=== PATIENT | male | born 1940 | race Hispanic/Latino ===

== ENCOUNTER 2018-02-20 07:26 | Day surgery (SDC) | payer MEDICARE, OTHER ==
[2018-02-20] MEDS ORDERED: NACL 0.9% 1000 ML 1,000 ML IV SCH (08:00)
[2018-02-20] MEDS ORDERED: PROVENTIL IH NR (08:00)
--- NOTE | 2018-02-20 08:03 | Anesthesia Day of Surgery ---
Anesthesia Day of Surgery - Day of Surgery Patient Examined: Yes Patient H&P Reviewed: Yes Patient is NPO: Yes Beta Blockers: No Cardiac Clearance: No Pulmonary Clearance: No
--- NOTE | 2018-02-20 08:04 | Anesthesia Consultation ---
Anesthesia Consult and Med Hx - Airway Anesthetic Teeth Evaluation: Good ROM Head & Neck: Adequate Mental/Hyoid Distance: Adequate Mallampati Class: Class III Intubation Access Assessment: Probably Good - Pulmonary Exam CTA: Yes - Cardiac Exam Cardiac Exam: No Murmur - Pre-Operative Health Status ASA Pre-Surgery Classification: ASA3 Proposed Anesthetic Plan: MAC - Pulmonary Hx Smoking: No Hx Asthma: No Hx Respiratory Symptoms: No SOB: No COPD: No Home Oxygen Therapy: No Hx Pneumonia: Yes (HX) Hx Sleep Apnea: Yes (USE HOME O2 @ 2L/M AT NIGHT) - Cardiovascular System Hx Hypertension: No Hx Coronary Artery Disease: No Hx Heart Attack/AMI: No Hx Angina: No Hx Percutaneous Transluminal Coronary Angioplasty (PTCA): No Hx Cardia Arrhythmia: No Hx Pacemaker: No Hx Internal Defibrillator: No Hx Valvular Heart Disease: No Hx Heart Murmur: No Hx Peripheral Vascular Disease: No - Central Nervous System Hx Neuromuscular Disorder: No Hx Seizures: No CVA: No Hx Back Pain: No Hx Psychiatric Problems: No - Gastrointestinal Hx Ulcer: No Hx Gastroesophageal Reflux Disease: No - Endocrine Hx Renal Disease: No Hx End Stage Renal Disease: No Hx Cirrhosis: No Hx Liver Disease: No Hx Insulin Dependent Diabetes: No Hx Non-Insulin Dependent Diabetes: No Hx Thyroid Disease: No Hx Hypothyroidism: Yes Hx Hyperthyroidism: No - Hematic Hx Anemia: No Hx Sickle Cell Disease: No - Other Systems Hx Alcohol Use: No Hx Substance Use: No Hx Cancer: No Hx Obesity: Yes
[2018-02-20] MEDS ORDERED: XYLOCAINE 2% INFILTRATI ONE (08:19)
[2018-02-20] MEDS ORDERED: DIPRIVAN 10 MG/ML IV ONE ×2 (08:19)
--- NOTE | 2018-02-20 09:13 | Procedure Note ---
Date of procedure: 02/20/18 Pre-op diagnosis: GI Bleeding Post-op diagnosis: other (Moderate, Internal Hemorrhoid/ Minor,Right Colon Diverticular Disease/ Colon Polyps (solitary,Descending colon and few Hyperplastic Rectal Polyps)) Anesthesia: MAC Surgeon: ABBY VALADEZ Estimated blood loss: minimal Pathology: list Specimen disposition: to lab Condition: stable Disposition: same day (Encourage fiber intake and OTC anti-hemorrhoidal medication. Avoid aspirin and aspirin related products for 4 days. Follow up in 1 to 2 weeks ([phone]).)
[2018-02-20 09:27] VITALS: BP 127/66
--- NOTE | 2018-02-20 09:37 | History and Physical Report ---
HISTORY OF PRESENT ILLNESS: This is a 77-year-old white male with prior history of transient ischemic attack and arthritis, who also has a history of diverticular disease. Lately, he has been having a bit of lower GI bleeding and because he had a colonoscopy done some years back, he has been advised to have a colonoscopy done for further assessment of his GI bleeding and to make sure that there is not any other associated pathology like ischemic colitis or any other significant lower GI pathology. ALLERGIES: He has a history of allergy to multiple medications including CRESTOR, LIPITOR, ZETIA, LUNESTA, ZOCOR, and BACLOFEN. PAST MEDICAL HISTORY: Also has problems with constipation. MEDICATIONS: He is on Movantik. SOCIAL HISTORY: Denies history of smoking or alcohol use. No cardiac issues and he has had his flu shots. PHYSICAL EXAMINATION: VITAL SIGNS: He was afebrile. Blood pressure 110/56, pulse 73, height is 5 feet 5 inches, weight is 231 pounds. HEENT: Showed no JVD. LUNGS: Clear to auscultation. He does have on occasion some wheezing and at present is getting a breathing treatment prior to his procedure. CARDIOVASCULAR: Normal. ABDOMEN: Soft with some mid abdominal tenderness. EXTREMITIES: No pedal edema. NEUROLOGIC: He is alert and oriented. ASSESSMENT AND PLAN: Colon polyp screening, lower gastrointestinal bleeding, rule out ischemic colitis, history of diverticular disease, history of TIA, arthritis, chronic constipation. Plan is to do a colonoscopy at [facility] on 02/20/2018. JOB# [id number] FAISAL/KIT
--- NOTE | 2018-02-20 09:55 | Operative Report ---
PROCEDURE: Colonoscopy with biopsy INDICATIONS: This is a 77-year-old white male with a prior history of TIA and arthritis, also does have a history of diverticular disease, recently had been having some lower GI bleeding. Colonoscopy was done to assess for the problem. DESCRIPTION OF PROCEDURE: Procedure was done after getting informed consent with MAC anesthesia. Initial rectal exam was unremarkable. Instrument was passed through the rectum onto the cecum, which was identified by ileocecal valve and the appendiceal orifice. Visualization was fair. The mucosa was washed with copious amounts of water. There were a few minor right colon diverticula noted. No other significant pathology was noted in the right or the transverse colon. In the proximal descending colon, there was an 8 mm sessile polyp noted that was removed by cold biopsy. The remaining part of the left colon showed normal mucosa. In the rectum, there were a few small polyps, possibly hyperplastic in type which were flat and these were removed by cold biopsy and the rectum showed moderate internal hemorrhoids in the retroverted view, which may have been the source of the GI bleeding. There was minimal bleeding from the biopsy sites. No complications associated with the procedure. ASSESSMENT: History of gastrointestinal bleeding, possibly secondary to moderate internal hemorrhoids, minor right colon diverticular disease, solitary descending colon polyp and rectal polyps which were possibly hyperplastic in type. The patient will be asked to avoid aspirin and aspirin-related products for the next few days. Encouraged to take fiber supplements and also asked to be treated with [id number] hemorrhoidal medications. Nurse Corinna Pickett the GI incinerator plant laborer was in the room during the entirety of the procedure. There were no complications associated with the procedure and no bleeding associated with the procedure. The patient will be asked to follow up in the office in 1-2 weeks' time. JOB# [id number] FAISAL/KIT RAO
== END 2018-02-20 07:27 | disposition home or self-care (01) ==
LOC: GIO 07:26
DX: K63.5 Polyp of colon (principal); K62.1 Rectal polyp; K59.09 Other constipation; K57.30 Diverticulosis of large intestine without perforation or abscess without bleeding; K64.8 Other hemorrhoids; G47.30 Sleep apnea, unspecified; E78.00 Pure hypercholesterolemia, unspecified; M19.90 Unspecified osteoarthritis, unspecified site; K21.9 Gastro-esophageal reflux disease without esophagitis; E03.9 Hypothyroidism, unspecified; E66.9 Obesity, unspecified; Z68.37 Body mass index [BMI] 37.0-37.9, adult; Z88.8 Allergy status to other drugs, medicaments and biological substances; Z86.73 Personal history of transient ischemic attack (TIA), and cerebral infarction without residual deficits; Z98.49 Cataract extraction status, unspecified eye; Z98.890 Other specified postprocedural states
CPT/HCPCS: 88305; 96365; J2704; J7030